=== PATIENT | male | born 1965 | race African-American/Black ===

== ENCOUNTER → 2017-02-17 | Outpatient (CLI) | payer OTHER | LOC: RAD 15:45 | DX: M47.896 Other spondylosis, lumbar region (principal); M16.12 Unilateral primary osteoarthritis, left hip ==

== ENCOUNTER 2017-05-30 09:23 | Emergency (ER) | payer OTHER ==
[~2017-05-30] VITALS: Ht 182.9 cm; Wt 149.7 kg
[2017-05-30] MEDS ORDERED: LISINOPRIL-HCT1 EAC1 PO (09:40)
[2017-05-30] MEDS ORDERED: FLEXERIL PO (10:57)
[2017-05-30] MEDS ORDERED: MEDROLDOSEPACK PO (10:57)
[2017-05-30] MEDS ORDERED: HYDROCODONE-AP1 EAC6 PO (10:57)
== END 2017-05-30 11:30 | disposition home or self-care (01) ==
LOC: ER 09:23
DX: S16.1XXA Strain of muscle, fascia and tendon at neck level, initial encounter (principal); S29.012A Strain of muscle and tendon of back wall of thorax, initial encounter; V49.9XXA Car occupant (driver) (passenger) injured in unspecified traffic accident, initial encounter; Y93.89 Activity, other specified; Y92.89 Other specified places as the place of occurrence of the external cause; Y99.8 Other external cause status

== ENCOUNTER → 2018-04-13 | Outpatient (CLI) | payer BC, OTHER ==
[~2018-04-13] MED LIST: FLEXERIL PO; HYDROCODONE-AP1 EAC6 PO; LISINOPRIL-HCT1 EAC1 PO; MEDROLDOSEPACK PO
== END ==
LOC: RAD 12:54
DX: M16.12 Unilateral primary osteoarthritis, left hip (principal); R51 Headache; M25.752 Osteophyte, left hip; W19.XXXA Unspecified fall, initial encounter; Y93.89 Activity, other specified; Y92.89 Other specified places as the place of occurrence of the external cause; Y99.8 Other external cause status

== ENCOUNTER → 2018-11-17 | Outpatient (CLI) | payer BC, OTHER | LOC: RAD 10:48 | DX: M25.512 Pain in left shoulder (principal) ==